=== PATIENT | female | born 1985 | race Caucasian/White ===

== ENCOUNTER 2023-06-29 11:30 | Outpatient (CLI) | payer BC, SELFPAY ==
--- OUTSIDE RECORDS SUMMARY | 2023-06-29 12:26 | XMS_ITS | Continuity of Care Document ---
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 Allergies, Adverse Reactions, Alerts Substance Reaction Severity Status acetaminophen-oxycodone Vomiting Unknown Acti ve Assessment and Plan Future Appointments Future Scheduled Tests Laboratory* Hemoglobin A1c 09/18/22 Immunizations Given and Recorded Vaccine Date Status Refusal Reason influenza virus vaccine, inactivated 1 11/09/22 [facility] SARS-CoV-2 mRNA (tozinameran 12y+) bival 2 11/09/22 Given SARS-CoV-2 (COVID-19) mRNA-1273 vaccine 11/09/21 R ecorded SARS-CoV-2 (COVID-19) mRNA-1273 vaccine 04/07/21 R ecorded SARS-CoV-2 (COVID-19) mRNA-1273 vaccine 03/10/21 R ecorded influenza virus vaccine, live 12/28/20 Recorded tetanus/diphth/pertuss (Tdap) adult/adol 12/12/18 Recorded Not Given Vaccine Date Status Refusal Reason influenza, unspecified formulation 04/17/22 Not [facility] Patient Refuses 1Result Comment: Wrong Chart 2Result Comment: Wrong Chart Medications lisinopril 20 mg oral tablet 1 tab, Oral, Daily, # 90 tab, 0 Refill(s), Pharmacy: [facility] Start Date: 12/18/22 Status: Ordered Medrol 4 mg oral tablet 1 packets, Oral, Once, as directed on package labeling, # 21 tab, 0 Refill(s), Pharmacy: [facility] Start Date: 12/28/22 Status: Ordered omeprazole 20 mg oral delayed release capsule 20 mg = 1 cap, Oral, Daily, # 90 cap, 1 Refill(s), Pharmacy: [facility] Start Date: 12/27/22 Status: Ordered Ozempic 2 mg/1.5 mL (0.25 mg or 0.5 mg dose) subcutaneous solution 0.25 mg =, Subcutaneous, every week, rotate injection sites, # 1 EA, 3 Refill(s), Pharmacy: [facility] Start Date: 12/27/22 Status: Ordered Provera 10 mg oral tablet 10 mg = 1 tab, Oral, Daily, # 10 tab, 4 Refill(s), Pharmacy: [facility] Start Date: 04/20/22 Stop Date: 06/09/22 Status: Ordered Problem List Condition Confirmation Course Effective Dates Status Health St atus Informant Amenorrhea Confirmed Active Benign essential hypertension Confirmed 08/10/20 Active 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 Sex Female Patient Care team information Care Team Personnel Name: Rima Granger PA-C Position: Physician Member Role: Primary Care Physician Address: Address: [address] [address]- Care Team Related Persons Name: WENDY MARQUEZ Address: Home [address] [facility], [place] [id number] Name: ESTELA CASTANON Address: Home [address] [facility], [id number] Name: JOSUÉ CASTANON Address: Home [address] [place] [address], [place] [id number]
--- OUTSIDE RECORDS SUMMARY | 2023-06-29 12:26 | XMS_ITS | Continuity of Care Document ---
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 Allergies, Adverse Reactions, Alerts Substance Reaction Severity [...] 1 tab, Oral, Daily, # 90 tab, 3 Refill(s), Pharmacy: [facility] Start Date: 04/12/23 Status: Ordered omeprazole 20 mg oral delayed release capsule 20 mg = 1 cap, Oral, Daily, # 90 cap, 1 Refill(s), Pharmacy: [facility] Start Date: 12/27/22 Status: Ordered Ozempic 2 mg/1.5 mL (0.25 mg or 0.5 mg dose) subcutaneous solution 0.25 mg =, Subcutaneous, every week, rotate injection sites, # 1 EA, 3 Refill(s), Pharmacy: [facility] Start Date: 12/27/22 Status: Ordered Provera 10 mg oral tablet 10 mg = 1 tab, Oral, Daily, # 10 tab, 4 Refill(s), Pharmacy: [facility] Start Date: 05/04/23 Stop Date: 06/23/23 Status: Ordered Problem List Condition Confirmation Course [...] Member Role: Primary Care Physician Address: Address: [address] Care Team Related Persons Name: WENDY MARQUEZ Address: Home [address] [facility] [id number] Name: ESTELA CASTANON Address: Home [address] [facility] [id number] Name: JOSUÉ CASTANON Address: Home [address] [place], [place] [id number]
[2023-06-29 12:51] LABS: CREATININE 0.7 mg/dL (0.55-1.02); Estimated GFR 114.88 (mL/min/1.73m2)
[2023-06-29] MEDS: Normal Saline - Diluent 50 ML VIAL IJ (13:21)
[2023-06-29] MEDS: Normal Saline Flush 10 ML SYR IJ (13:22)
[2023-06-29] MEDS: Omnipaque 350 MG/ML 500 ML BTL-Imaging package 100 ML IJ (13:22)
--- NOTE | 2023-06-29 13:23 | DI.CT_ITS ---
Exam(s) CT TEMPORAL BONE WO/W EXAM: CT TEMPORAL BONE WO/W CLINICAL HISTORY: Rt ear serous otitis media, ? CSF leak, H65.21. TECHNIQUE: Imaging Protocol: Axial computed tomography images with coronal and sagittal reformatted images were created and reviewed. CONTRAST MATERIAL: Intravenous: Omnipaque 350 Contrast volume:structured data in ml Contrast route:I V - Oral: yes / no COMPARISON: No exams were available for comparison FINDINGS: VISUALIZED PARANASAL SINUSES: There is circumferential mucosal thickening in the maxillary sinuses no t associated with fluid collection. There is what appears to be post inflammatory retention cyst or polyp on the lateral wall the left maxillary sinus. There is almost complete opacification of ethmoi leanne air cells bilaterally. There is mucosal thickening in the frontal sinuses. Also mucosal thicken ing in the sphenoid sinuses, without fluid levels therein. Mastoid air cells are clear/well aerated bilaterally. No effusions. Right Temporal Bone: Right inner ear: Unremarkable. Semicircular canals appear unremarkable. No evidence of obvious dehi scence. Internal auditory canal appears unremarkable. Right middle ear: There is a lobulated mass in the anterior right mesotympanum Which measures 5 x 9 x 7 mm. This medially located mass contacts but does not appear to erode nor di splace the middle ear ossicles (which appear unremarkable). This mass approaches but does not invade the oval window. The scutum appears intact. The middle ear mass does not extend through the aditus ad antrum into the mastoid air cells. The right facial nerve canal appears unremarkable. Right external auditory canal appears unremarkable. The carotid canal and jugular foramen are within normal limits. The ipsilateral temporomandibular erica int is unremarkable. Left Temporal Bone: Left inner ear: Unremarkable. Left middle ear: Unremarkable. Left external auditory canal appears unremarkable. The carotid canal and jugular foramen are within normal limits. The temporomandibular joint is unrema rkable. IMPRESSION: 1. There is a noncalcified mildly enhancing lobulated mass in the right middle ear as described abov e. This mass abuts but does not erode nor displace the middle ear ossicles. 2. No osseous dehiscence to suggest CSF leak. 3. Opposite-left side appears unremarkable. 4. There is significant paranasal sinus disease as described above. There is no fluid in the mastoi d air cells. 2. RADIATION DOSE DELIVERED: 898.64mGy.cm Total DLP DATA REPOSITORY: All CT scans at this facility are submitted to the National Radiology Data Registry (NRDR) Dose Index Registry (DIR) with the [employer] (A[employer]). RADIATION OPTIMIZATION: All CT scans at this facility use at least one of these dose optimization te chniques: automated exposure control; mA and/or kV adjustment per patient size (includes targeted exa ms where dose is matched to clinical indication); or iterative reconstruction.
--- NOTE | 2023-06-29 16:34 | DI.VRAD_ITS ---
PROCEDURE INFORMATION: Exam: CT Temporal Bones Without and With Contrast. Exam date and time: 06/29/2023 1:22 PM Age: 38 years old Clinical indication: Patient HX: RT ear serous otitis media, ? csf leak, TECHNIQUE: Imaging protocol: Computed tomography of the temporal bones without and with contrast. Contrast material: OMNIPAQUE 350; Contrast volume: 100 ml; Contrast route: INTRAVENOUS (IV); COMPARISON: No relevant prior studies available. FINDINGS: Right inner ear: Normal. Right ossicles and middle ear: Enhancing lobulated mass of the anterior right mesotympanum overlying the cochlear promontory measures 5 x 9 x 7 mm. This abuts but does not appear to erode the middle ear ossicles, which appear otherwise unremarkable. Although this lesion approaches the oval window, no direct contiguity is appreciated. The round window niche is clear. Right external auditory canal: Normal. Right facial nerve canal: Normal. Right jugular foramen: No jugular dehiscence. Right carotid canal: No aberrant carotid canal. Right mastoid air cells: Normal. No mastoid effusions. Left inner ear: Normal. Left ossicles and middle ear: Normal. The middle ear ossicles are intact. Left external auditory canal: Normal. Left facial nerve canal: Normal. Left jugular foramen: No jugular dehiscence. Left carotid canal: No aberrant carotid canal. Left mastoid air cells: Normal. No mastoid effusions. Paranasal sinuses: Moderate mucosal thickening of the paranasal sinuses with mucoid retention of the frontal sinuses. No air-fluid level. Soft tissues: Unremarkable. IMPRESSION: 1. 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 2. No osseous deficiency or fluid of the right middle ear or mastoid air cells to suggest CSF leak. 3. Moderate paranasal sinus mucosal thickening. Dictated and Authenticated by: Michael Moralez MD. Ordering:JEFFERSON Pantoja MD
== END 2023-06-29 11:50 ==
PROVIDERS: PCP Physician Assistant; Visit Provider Registered Nurse Maternal Newborn
DX: H65.21 Chronic serous otitis media, right ear (principal)
CPT/HCPCS: 70482; 82565